=== PATIENT | female | born 1995 | race Caucasian/White ===

== ENCOUNTER 2017-12-28 22:00 | Emergency (ER) | payer OTHER ==
[~2017-12-28] VITALS: Ht 167.6 cm; Wt 100.2 kg
[2017-12-28 23:02] LABS: AMPHETAMINE NEGATIVE (500 ng/mL); BARBITURATES NEGATIVE (200 ng/mL); BENZODIAZEPINES NEGATIVE (150 ng/mL); BUPRENORPHINE NEGATIVE (10 ng/mL); COCAINE NEGATIVE (150 ng/mL); METHADONE NEGATIVE (200 ng/mL); METHAMPHETAMINE NEGATIVE (500 ng/mL); OPIATES (MORPHINE) NEGATIVE (100 ng/mL); OXYCODONE NEGATIVE (100 ng/mL); PHENCYCLIDINE NEGATIVE (25 ng/mL); PROPOXYPHENE NEGATIVE (300 ng/mL); THC CANNABINOIDS NEGATIVE (50 ng/mL); TRICYCLIC ANTIDEPRESSANTS NEGATIVE (300 ng/mL)
[2017-12-28 23:23] LABS: BASOPHIL (%) 0.2 % (0-1); EOSINOPHIL (%) 2.8 % (0-5); EOSINOPHIL COUNT 0.3 K/uL (0-0.3); HEMATOCRIT 39.4 % (36.0-46.0); HEMOGLOBIN 12.8 G/DL (11.9-15.5); IMMATURE GRANULOCYTE (%) 0.3 % (0.0-0.7); LYMPHOCYTE (%) 21.5 % (15-42); LYMPHOCYTE COUNT 2.6 K/uL (1.0-2.8); MCH 25.8 PG (29.0-34.0); MCHC 32.5 G/DL (30.0-36.0); MCV 79.3 FL (83-99); MONOCYTE (%) 6.8 % (3-12); MONOCYTE COUNT 0.8 K/uL (0-0.8); NEUTROPHIL (%) 68.4 % (45-76); NEUTROPHIL COUNT 8.4 K/uL (1.8-6.4); PLATELET COUNT 273 K/uL (156-360); RBC DIS.WIDTH-SD 43.2 % (39-53); RED BLOOD COUNT 4.97 M/uL (3.80-5.20); WHITE BLOOD COUNT 12.3 K/uL (4.1-10.2)
[2017-12-28 23:38] LABS: CHLORIDE 106 mEq/L (99-109); POTASSIUM 3.8 mEq/L (3.7-5.4); SODIUM 140 mEq/L (136-147)
[2017-12-28 23:40] LABS: GLUCOSE 92 mg/dL (70-99)
[2017-12-28 23:43] LABS: SERUM ETHYL ALCOHOL < 10 mg/dL
[2017-12-28 23:44] LABS: CREATININE 0.8 mg/dL (0.6-1.3)
[2017-12-28 23:45] LABS: UREA NITROGEN (BUN) 11 mg/dL (9-23)
[2017-12-28 23:46] LABS: ACETAMINOPHEN (TYLENOL) < 10 mcg/mL (10-30)
[2017-12-28 23:53] LABS: QUANTITATIVE HCG < 4.0 MIU/ML
[2017-12-29 00:02] VITALS: BP 155/99
[2017-12-29 00:04] LABS: GFR ESTIMATE (CALCULATED) > 59 mL/min/
[2017-12-29 05:16] LABS: SALICYLATE < 3.0 MG/DL (15-30)
== END 2017-12-29 00:03 | disposition home or self-care (01) ==
LOC: EME 22:00
PROVIDERS: Emergency Medicine
DX: F43.22 Adjustment disorder with anxiety (principal)
CPT/HCPCS: 80048; 84702; 85025; 90839; 99281; 99285; G0480